=== PATIENT | female | born 2000 | race Caucasian/White ===

== ENCOUNTER → 2020-06-23 13:53 | Outpatient (CLI) | payer BC, OTHER, SELFPAY ==
[2020-06-23 11:01] VITALS: BMI 29.9
[2020-06-25 07:07] LABS: Chlamydia By Nucleic Acid AMP Negative (Negative)
[2020-06-25 08:24] LABS: Gonococcus By Nucleic Acid AMP Negative (Negative)
[2020-06-25 16:25] LABS: HPV Reflexed? NOT INDICATED
== END ==
PROVIDERS: Referring Provider Nurse Practitioner Women's Health; Visit Provider Nurse Practitioner Women's Health
DX: Z12.4 Encounter for screening for malignant neoplasm of cervix (principal); Z11.3 Encounter for screening for infections with a predominantly sexual mode of transmission
CPT/HCPCS: 87491; 87591; 88175; G0145

== ENCOUNTER → 2020-07-07 10:45 | Outpatient (CLI) | payer BC, OTHER, SELFPAY ==
[2020-06-23 11:01] VITALS: BMI 29.9
[2020-07-07 11:34] LABS: hCG Titer Quant., Serum 29 mIU/mL (1-3)
== END ==
PROVIDERS: Referring Provider Nurse Practitioner Women's Health; Visit Provider Nurse Practitioner Women's Health
DX: N91.2 Amenorrhea, unspecified (principal)
CPT/HCPCS: 36415; 84702

== ENCOUNTER → 2020-07-09 14:58 | Outpatient (CLI) | payer BC, OTHER, SELFPAY ==
[2020-06-23 11:01] VITALS: BMI 29.9
[2020-07-09 15:55] LABS: hCG Titer Quant., Serum 101 mIU/mL (1-3)
== END ==
PROVIDERS: Referring Provider Nurse Practitioner Women's Health; Visit Provider Nurse Practitioner Women's Health
DX: N91.2 Amenorrhea, unspecified (principal)
CPT/HCPCS: 36415; 84702

== ENCOUNTER 2020-07-30 18:25 | Emergency (ER) | payer BC, OTHER, SELFPAY ==
[2020-07-28 11:48] VITALS: BMI 29.9
[2020-07-30 18:25] VITALS: BP 137/86; PULSE 93; RESP 16; TEMP 36.2; O2SAT 100
[2020-07-30 18:26] VITALS: BP 137/86; PULSE 88; RESP 16; TEMP 36.2; O2SAT 100; BMI 30.3
--- NOTE | 2020-07-30 18:50 | US_ITS ---
STUDY: FIRST TRIMESTER OBSTETRICAL ULTRASOUND REASON FOR EXAM: Female, 19 years old RT ADX PAIN AND BLEEDING LMP: May 18, 2020. TECHNIQUE: Transabdominal and Transvaginal TECHNICAL QUALITY: Adequate. PRIOR ULTRASOUND: None. FINDINGS: There is visualization of a single gestational sac in a normal intrauterine position. The mean sac diameter (MSD) measures 2.2 cm, indicating an estimated gestational age (EGA) of 7 weeks, 0 days. The gestational sac shape is within normal limits. There is adjacent 1.7 cm hypoechoic subchorionic hemorrhage. There is a visualized yolk sac. The yolk sac measures 0.4 cm. The placenta is non-visualized. There is visualization of a live embryo. The crown-rump length (CRL) measures 0.8 cm, indicating an estimated gestational age (EGA) of 6 weeks, 6 days. There is demonstrated cardiac activity with a heart rate of 130 bpm. The estimated gestation age (EGA) by LMP is 10 weeks, 3 days. The estimated date of delivery (TANIA) by LMP is February 22, 2021. The estimated gestation age (EGA) by US is 6 weeks, 3 days. The estimated date of delivery (TANIA) by US is March 19, 2021. The uterus measures 7.2 x 6.5 x 4.3 cm. There is no demonstrated uterine fibroid. The cervix is closed. The right ovary measures 4.2 x 3.0 x 2.9 cm. There is 1.7 cm cyst. There is no visualized right adnexal mass or complex lesion. The left ovary measures 2.9 x 2.2 x 1.7 cm. There is no left ovarian cyst. There is no visualized left adnexal mass or complex lesion. There is no fluid in the cul de sac. US/Transvaginal w/Preg US IMPRESSION: Single intrauterine gestation 6 weeks 6 days with estimated due date March 19, 2021. There is subchorionic hemorrhage. Electronically Signed: Mario Saini MD at 20:12 EDT , Service support ,
--- NOTE | 2020-07-30 18:50 | ED.DCSUM_ITS ---
History of Present Illness Chief Complaint: Vag Bld, Preg Informant: Patient, Family Narrative: 19-year-old female G1, presenting at 10 weeks gestation for vaginal bleeding. She states this started about an hour ago and it was bright red. She bled to her pants. She still has some slight bleeding. She complains of abdominal cramping which is worse in the right adnexal region. She states she does not have confirmed intrauterine yet. She called her [facility] earlier for nausea and was given Phenergan which she took. This helped her nausea. - Past Medical History (1) Status: Acute Comment: desires genetic, carrier and NTD Past Medical History - Allergies and Home Meds Allergies/Adverse Reactions: Allergies prednisone Allergy (Severe, Verified 07/28/20 11:49) Angioedema Primary Care Physician: Care Physician,No Primary [Primary Care Provider] - Past Medical History: None Surgical History: noncontributory Lives: With Family Smoking Status: Never smoker Alcohol: None Drugs: None Review of Systems General: Denies: Chills, Fever, Sweats Eyes: Denies: Visual changes - bilaterally, Diplopia ENT: Denies: Rhinorrhea, Sore throat Cardiovascular: Denies: Chest pain, Palpitations Respiratory: Denies: Dyspnea, Cough, Dyspnea on exertion Gastrointestinal: Denies: Abdominal pain, Nausea, Vomiting, Diarrhea, Melena, Hematochezia Genitourinary: Reports: - - Right adnexal pain and vaginal bleeding Musculoskeletal: Denies: Back pain, Extremity Pain Skin: Denies: Rash, Wounds Neurological: Denies: Headache, Weakness, Numbness Physical Exam Vital Signs/Narrative: Vital Signs Temp Pulse Resp BP Pulse Ox 07/30/20 18:26 97.1 F L 88 16 137/86 H 100 07/30/20 18:25 97.1 F L 93 16 137/86 H 100 General: Well nourished, No Acute Distress Head: Normocephalic, Atraumatic Eyes: Perrl, EOMI. Negative for: Pale conjunctiva ENT: Moist mucous membranes, No rhinorrhea Cardiovascular: Regular rate, Regular rhythm Respiratory: No distress, CTA bilaterally Abdomen: - - Numbness to palpation in the right adnexa. Skin: Normal color, No rash Neurological: Alert, Oriented x3 Psychological: Normal affect, Normal Mood Diagnostic/Tx/Re-eval Clinical Impression(s) from Imaging Studies Obstetrics Ultrasound 07/30/20 18:50 IMPRESSION: Single intrauterine gestation 6 weeks 6 days with estimated due date March 19, 2021. There is subchorionic hemorrhage. Electronically Signed: Mario Saini MD at 20:12 EDT , Service support , Laboratory Data 07/30/20 07/30/20 07/30/20 18:55 18:55 18:55 WBC 12.3 H RBC 3.86 L Hgb 11.8 L Hct 35.5 L MCV 92.0 MCH 30.6 MCHC 33.2 RDW Std Deviation 39.8 RDW Coeff of Nicko 11.8 Plt Count 360 MPV 9.2 Immature Gran % (Auto) 0.600 Neut % (Auto) 73.5 H Lymph % (Auto) 18.[address] [place] % (Auto) 6.4 Eos % (Auto) 1.1 Baso % (Auto) 0.4 Absolute Neuts (auto) 9.0 H Absolute Lymphs (auto) 2.20 Nucleated RBC % 0 Sodium Potassium Chloride Carbon Dioxide Anion Gap BUN Creatinine Estim Creat Clear Calc Est GFR (MDRD) Af Amer Est GFR (MDRD) Non-Af BUN/Creatinine Ratio Glucose Calcium HCG, Quant 46392 H Blood Type A POSITIVE 07/30/20 18:55 WBC RBC Hgb Hct MCV MCH MCHC RDW Std Deviation RDW Coeff of Nicko Plt Count MPV Immature Gran % (Auto) Neut % (Auto) Lymph % (Auto) [place] % (Auto) Eos % (Auto) Baso % (Auto) Absolute Neuts (auto) Absolute Lymphs (auto) Nucleated RBC % Sodium 139 Potassium 3.7 Chloride 107 Carbon Dioxide 24.0 Anion Gap 8 BUN 9 Creatinine 0.56 Estim Creat Clear Calc 125.68 Est GFR (MDRD) Af Amer 173 Est GFR (MDRD) Non-Af 143 BUN/Creatinine Ratio 16.0 Glucose 90 Calcium 9.1 HCG, Quant Blood Type - Medical Decision Making Patient presents with estimated gestation of 10 weeks with vaginal bleeding without confirmed intrauterine . On pelvic exam the cervical office is closed although there is some blood in the posterior fornix. Hemoglobin is stable. Electrolytes and kidney function are normal. Her blood type is positive so she does not need RhoGam. Transvaginal ultrasound shows live intrauterine with small subchorionic hemorrhage. There is no ectopic . Patient will follow-up with her [facility] tomorrow on an outpatient basis. Impression: 1. Threatened miscarriage 2. Subchorionic hemorrhage ED Disposition - Plan for ED Patient: Disposition: Home or Assisted Living Instructions: ED Possible Miscarriage Threatened Referrals: Care Physician,No Primary [Primary Care Provider] -
[2020-07-30 19:12] LABS: Basophil# 0.05 X10^3/uL; Basophil% 0.4 % (0-1); Eosinophil# 0.14 X10^3/uL; Eosinophils% 1.1 % (0-5); Hematocrit 35.5 % (37-47); Hemoglobin 11.8 g/dL (12.0-15.0); Mean Corp Hgb Conc 33.2 g/dL (32-36); Mean Corpuscular Hgb 30.6 pg (27.0-32.0); Mean Platelet Vol. 9.2 fl (6.2-12.0); Monocyte# 0.79 X10^3/uL; Monocyte% 6.4 % (0-10); NRBC Flagged by Analyzer 0 % (0-5); Neutrophil % 73.5 % (47-70); Platelet Count 360 K/mm3 (150-450); RBC Distribution Width CV 11.8 % (11.6-14.6); RBC Distribution Width SD 39.8 fl (35.1-43.9); Red Blood Count 3.86 M/mm3 (4.2-5.4); White Blood Count 12.3 K/mm3 (4.4-11.0)
[2020-07-30 19:32] LABS: Anion Gap 8 (5-15); BUN 9 mg/dL (7-18); Calcium,Total 9.1 mg/dL (8.5-10.1); Chloride 107 mmol/L (98-107); Creatinine, Serum 0.56 mg/dL (0.55-1.02); EST Glomerular Filtration Rate 143 mL/min (>60); Est Glom Filt Rate - Afr Amer 173 mL/min (>60); Estimated Creatinine Clearance 125.68 ml/min; Glucose 90 mg/dL (74-106); Potassium 3.7 mmol/L (3.5-5.1); Sodium Level 139 mmol/L (136-145)
[2020-07-30] MEDS: 0.9% Normal Saline 1,000 ML 1000 ML IV (19:37)
[2020-07-30 21:49] VITALS: BP 106/53; PULSE 83; RESP 16; O2SAT 100
== END 2020-07-30 21:53 | disposition home or self-care (01) ==
PROVIDERS: Emergency Provider Student in an Organized Health Care Education/Training Program
DX: O20.0 Threatened abortion (principal); O20.8 Other hemorrhage in early pregnancy; Z3A.10 10 weeks gestation of pregnancy
CPT/HCPCS: 76817; 80048; 84702; 85025; 86900; 86901; 96360; 99283; J7030; A4216

== ENCOUNTER → 2020-08-21 10:59 | Outpatient (CLI) | payer BC, OTHER, SELFPAY ==
[2020-08-20 11:06] VITALS: BMI 29.2
[2020-08-21 11:39] LABS: Absolute Lymphocyte Count 1.59 X10^3/uL (0.83-4.51); Absolute Neutrophil Count 7.4 X10^3/uL (2.0-7.7); Basophil# 0.04 X10^3/uL; Basophil% 0.4 % (0-1); Eosinophil# 0.11 X10^3/uL; Eosinophils% 1.1 % (0-5); Hematocrit 37.4 % (37-47); Hemoglobin 12.7 g/dL (12.0-15.0); Lymphocyte # 1.59 X10^3/ul (4.0); Lymphocyte % 16.5 % (19-41); Mean Corpuscular Hgb 31.3 pg (27.0-32.0); Mean Corpuscular Volume 92.1 fL (81-99); Mean Platelet Vol. 9.5 fl (6.2-12.0); Monocyte# 0.45 X10^3/uL; Monocyte% 4.7 % (0-10); NRBC Flagged by Analyzer 0 % (0-5); Neutrophil # 7.44 X10^3/uL (2.7-7.7); Platelet Count 326 K/mm3 (150-450); RBC Distribution Width CV 11.9 % (11.6-14.6); RBC Distribution Width SD 40.2 fl (35.1-43.9); Red Blood Count 4.06 M/mm3 (4.2-5.4); White Blood Count 9.7 K/mm3 (4.4-11.0)
[2020-08-21 12:51] LABS: HIV - WCH Non-Reactive (Nonreactive); Hepatitis B Surface Antigen Non-Reactive (Nonreactive); Hepatitis C Antibody Non-Reactive (Nonreactive); Rubella IgG 59.6 IU/mL
[2020-08-27 01:11] LABS: Rapid Plasmin Reagin (RPR) NONREACTIVE (NONREACTIVE)
== END ==
PROVIDERS: Obstetrics & Gynecology; Referring Provider Nurse Practitioner Women's Health; Visit Provider Nurse Practitioner Women's Health
DX: Z34.00 Encounter for supervision of normal first pregnancy, unspecified trimester (principal)
CPT/HCPCS: 36415; 85025; 86592; 86703; 86762; 86803; 86850; 86900; 86901; 87340

== ENCOUNTER → 2020-10-12 13:23 | Outpatient (CLI) | payer BC, OTHER, SELFPAY ==
[2020-10-12 13:09] VITALS: BMI 29.0
[2020-10-19 14:10] LABS: CF, Screen Comment: (.)
== END ==
PROVIDERS: Referring Provider Obstetrics & Gynecology; Visit Provider Obstetrics & Gynecology
DX: Z34.00 Encounter for supervision of normal first pregnancy, unspecified trimester (principal)
CPT/HCPCS: 36415; 81220

== ENCOUNTER → 2020-12-23 10:41 | Outpatient (CLI) | payer OTHER, SELFPAY ==
[2020-12-09 10:49] VITALS: BMI 30.9
[2020-12-23 10:59] LABS: Absolute Lymphocyte Count 1.59 X10^3/uL (0.83-4.51); Absolute Neutrophil Count 8.8 X10^3/uL (2.0-7.7); Basophil# 0.05 X10^3/uL; Basophil% 0.4 % (0-1); Eosinophils% 0.9 % (0-5); Hematocrit 34.4 % (37-47); Hemoglobin 11.5 g/dL (12.0-15.0); Lymphocyte # 1.59 X10^3/ul (4.0); Mean Corp Hgb Conc 33.4 g/dL (32-36); Mean Corpuscular Hgb 31.3 pg (27.0-32.0); Mean Corpuscular Volume 93.7 fL (81-99); Monocyte# 0.63 X10^3/uL; Monocyte% 5.6 % (0-10); NRBC Flagged by Analyzer 0 % (0-5); Neutrophil # 8.83 X10^3/uL (2.7-7.7); Platelet Count 329 K/mm3 (150-450); RBC Distribution Width CV 12.7 % (11.6-14.6); RBC Distribution Width SD 43.6 fl (35.1-43.9); Red Blood Count 3.67 M/mm3 (4.2-5.4); White Blood Count 11.3 K/mm3 (4.4-11.0)
[2020-12-23 11:05] LABS: Glucose Challenge Gest 1H 50g 102 mg/dL (70-140)
== END ==
PROVIDERS: Referring Provider Obstetrics & Gynecology; Visit Provider Obstetrics & Gynecology
DX: Z34.00 Encounter for supervision of normal first pregnancy, unspecified trimester (principal)
CPT/HCPCS: 36415; 82950; 85025

== ENCOUNTER → 2021-02-19 13:03 | Outpatient (CLI) | payer OTHER, SELFPAY ==
[2021-02-19 11:24] VITALS: BMI 34.0
== END ==
PROVIDERS: Referring Provider Obstetrics & Gynecology; Visit Provider Obstetrics & Gynecology
DX: Z34.00 Encounter for supervision of normal first pregnancy, unspecified trimester (principal)
CPT/HCPCS: 87081

== ENCOUNTER 2021-03-14 22:00 | Outpatient (CLI) | payer OTHER, SELFPAY ==
[2021-03-12 10:47] VITALS: BMI 34.5
[2021-03-14 22:07] VITALS: BMI 35.1
[2021-03-14 22:12] VITALS: BP 147/68; PULSE 100; TEMP 37.3; O2SAT 99
[2021-03-14 22:16] VITALS: TEMP 37.3
[2021-03-14 22:29] VITALS: BP 139/78; PULSE 100
[2021-03-14 22:43] VITALS: BP 130/64; PULSE 100
[2021-03-14 22:58] VITALS: BP 126/60; PULSE 86
[2021-03-14 23:05] LABS: ROM Internal Control Test YES-OK TO RESULT pt. (Internal QC); ROM Patient Test Negative (Negative)
[2021-03-14 23:13] VITALS: BP 116/64; PULSE 90
--- NOTE | 2021-03-15 20:28 | OB.TRI.PN ---
Progress Notes Date of Service: 03/14/21 Progress Note: Patient presents for triage evaluation secondary to dec fm/questionable ROM FHT: 130 Moderate variability reactive no decelerations category I tracing [place]: no regular Contractions Assessment and plan: dec fm Reactive NST, negative rom reassuring maternal and status patient discharged to home to follow-up in office, kick counts. See problem list details for additional plan information. Laboratory Studies: Laboratory Tests 03/15/21 03/14/21 Range/Units 13:30 22:30 Vag Amniotic Fld Detect Negative (Negative) COVID-19 (FELIPE) Cancelled Assessment & Plan Assessment/Plan (1) Decreased movements in third trimester: Procedures Urinary/Genital [id number]: [id number] non-stress test Interp
== END 2021-03-14 23:20 | disposition home or self-care (01) ==
LOC: WPOUT 22:05 → WP 22:05
PROVIDERS: Visit Provider Obstetrics & Gynecology
DX: O36.8130 Decreased fetal movements, third trimester, not applicable or unspecified (principal); Z3A.00 Weeks of gestation of pregnancy not specified
CPT/HCPCS: 59025; 59050; 84112; 94760; 99218; G0378

== ENCOUNTER → 2021-03-15 15:01 | Outpatient (CLI) | payer OTHER, SELFPAY ==
[2021-02-05 10:39] VITALS: BMI 32.9
[2021-03-14 22:07] VITALS: BMI 35.1
== END ==
PROVIDERS: Visit Provider Obstetrics & Gynecology
DX: Z20.822 Contact with and (suspected) exposure to COVID-19 (principal)
CPT/HCPCS: 87635; C9803; U0002

== ENCOUNTER 2021-03-24 06:45 | Inpatient (IN) | payer OTHER, SELFPAY ==
[2021-03-19 10:39] VITALS: BMI 35.1
[2021-03-24] VITALS (32 sets, daily range): BP systolic 101–136; BP diastolic 52–98; PULSE 68–104; TEMP 36.4–36.8; O2SAT 82–100; BMI 34.7
[2021-03-24] MEDS: Lactated Ringers 1,000 ML 50 ML IV (08:00)
[2021-03-24] MEDS: Oxytocin 30 units/NS 500 ml 30 UNITS/500 ML IV.SOLN IV (08:15)
[2021-03-24 08:21] LABS: Absolute Lymphocyte Count 1.79 X10^3/uL (0.83-4.51); Absolute Neutrophil Count 10.9 X10^3/uL (2.0-7.7); Basophil# 0.06 X10^3/uL; Basophil% 0.4 % (0-1); Eosinophil# 0.18 X10^3/uL; Eosinophils% 1.3 % (0-5); Hematocrit 36.8 % (37-47); Hemoglobin 12.6 g/dL (12.0-15.0); Lymphocyte # 1.79 X10^3/ul (0.83-4.51); Lymphocyte % 13.1 % (19-41); Mean Corp Hgb Conc 34.2 g/dL (32-36); Mean Corpuscular Hgb 31.3 pg (27.0-32.0); Mean Corpuscular Volume 91.5 fL (81-99); Mean Platelet Vol. 9.7 fl (6.2-12.0); Monocyte# 0.59 X10^3/uL; Monocyte% 4.3 % (0-10); NRBC Flagged by Analyzer 0 % (0-5); Neutrophil # 10.94 X10^3/uL (2.7-7.7); Neutrophil % 80.1 % (47-70); Platelet Count 325 K/mm3 (150-450); RBC Distribution Width CV 12.9 % (11.6-14.6); RBC Distribution Width SD 42.5 fl (35.1-43.9); Red Blood Count 4.02 M/mm3 (4.2-5.4); White Blood Count 13.7 K/mm3 (4.4-11.0)
[2021-03-24] MEDS: Lactated Ringers 500 ML 999 ML IV ×4 (11:20→22:14)
--- NOTE | 2021-03-24 13:10 | HP.PCM.OB_ITS ---
HPI - General General Date of Admission: 03/24/21 HPI Narrative JOSE NEWMAN is a 20 F at 40 weeks gestation who presents for induction of labor for postdates Maternal Data Information TANIA Calculator Estimated Delivery Date Method Current WG Current Estimate 03/19/21 Ultrasound #1 40w 5d Other Estimates 02/22/21 Conception 44w 2d [facility] Medical History (Updated 03/24/21 @ 13:[address] Carie Swift MD) No significant medical problems Home Medications multivitamin no.47-iron fum 27 mg-folate no.1 1 mg-dha 300 mg capsule 1 cap PO DAILY 07/28/20 [History Last Taken 03/23/21] famotidine [Pepcid] 20 mg PO BID 03/14/21 [History Last Taken Unknown] promethazine 12.5 mg PO TID 03/14/21 [History Last Taken 03/23/21] Allergy/AdvReac Type Severity Reaction Status Date / Time prednisone Allergy Severe Angioedema Verified 03/19/21 10:34 Family History (Updated 03/24/21 @ 08:48 by Amy Reyes) Mother Hypertension Other Diabetes Surgical History No significant past surgical history Social History Smoking Status: Never smoker second hand exposure: No alcohol intake: never substance use type: does not use caffeine: Yes what type of physical activity do you participate in: none seatbelt use: always do you feel safe at home: Yes additional social history: Works at [employer] History 1 Elective abortions Hx Para 0 Spontaneous abortions Hx # Term Pregnancies Ectopic pregnancies Hx # Pregnancies Multiple births # of living children Visit Details Expected Delivery Route/Plan Labor Preferences- CB/BF classes: encouraged labor support person: Rudy labor intervention preferences: open to standard interventions pain management options preferred: natural as long as possible, open to epidural cut cord/dad catch: cord, NOT catch : yes PP control planned: [] discussed possible routes of delivery and associated risks: [] special requests: [] Plans flu vaccine: decline tdap vaccine: yes rhogam: na LARC form signed: yes movement and labor precautions reviewed. Problem list reviewed and updated with the most current plan of care details and appropriate orders placed. Relevant counseling for the gestational age provided. Continue routine care and follow up unless otherwise noted in visit notes/problem list details OB Flowsheet Initial Weight: Not Recorded Date -?-?-?-?-?-?-?-?-?-?-?-?- EGA Weight BP Urine Prot -?-?-?-?-?-?-?-?-?-?-?-?- Glucose FHR FuHt Pres Dilation -?-?-?-?-?-?-?-?-?-?-?-?- Effaced St Visit Note 08/04/20 -?-?-?-?-?-?-?-?-?-?-?-?- 7w 4d 163 lb 110/82 -?-?-?-?-?-?-?-?-?-?-?-?- 160 -?-?-?-?-?-?-?-?-?-?-?-?- SM- seen fro bro wn spotting, stable small subchorionic hemorrhage. plan fu in 2 weeks 08/20/20 -?-?-?-?-?-?-?-?-?-?-?-?- 9w 6d 160 lb 112/73 Negative -?-?-?-?-?-?-?-?-?-?-?-?- Negative 155 -?-?-?-?-?-?-?-?-?-?-?-?- Sm- hemorrhage r esolved no vb crmaping getting bloodwork done tomorrow 09/16/20 -?-?-?-?-?-?-?-?-?-?-?-?- 13w 5d 161 lb 2 oz 118/82 Nega tive -?-?-?-?-?-?-?-?-?-?-?-?- Negative 150 -?-?-?-?-?-?-?-?-?-?-?-?- GP - no cramping or bleeding. Anatomy scan ordered. NIPT normal. 10/12/20 -?-?-?-?-?-?-?-?-?-?-?-?- 17w 3d 159 lb 106/80 Negative -?-?-?-?-?-?-?-?-?-?-?-?- Negative 145 -?-?-?-?-?-?-?-?-?-?-?-?- SM- no vb lof so me cramping, afp and cf screen today 11/10/20 -?-?-?-?-?-?-?-?-?-?-?-?- 21w 4d 164 lb 122/80 Negative -?-?-?-?-?-?-?-?-?-?-?-?- Negative 140 -?-?-?-?-?-?-?-?-?-?-?-?- Sm- no vb lof go od fm no regular ctx 11/24/20 -?-?-?-?-?-?-?-?-?-?-?-?- 23w 4d 168 lb 2 oz 130/60 Nega tive -?-?-?-?-?-?-?-?-?-?-?-?- Negative 148 -?-?-?-?-?-?-?-?-?-?-?-?- -work in for ? lump mid left lower abdomen. No definitive mass/hernia. Call if definitive mass or significant pain occurs. Good FM. No CTX, VB, LOF. 12/09/20 -?-?-?-?-?-?-?-?-?-?-?-?- 25w 5d 169 lb 6 oz 128/78 Nega tive -?-?-?-?-?-?-?-?-?-?-?-?- Negative 135 25 -?-?-?-?-?-?-?-?-?-?-?-?- GP - no ctx, LOF , VB, DFM. GCT next visit. 12/23/20 -?-?-?-?-?-?-?-?-?-?-?-?- 27w 5d 169 lb 118/76 Negative -?-?-?-?-?-?-?-?-?-?-?-?- Negative 146 28 -?-?-?-?-?-?-?-?-?-?-?-?- MH-No VB, LOF. G ood FM. 28 wk labs, tdap, larc. 01/08/21 -?-?-?-?-?-?-?-?-?-?-?-?- 30w 0d 175 lb 122/80 Negative -?-?-?-?-?-?-?-?-?-?-?-?- Negative 145 30 -?-?-?-?-?-?-?-?-?-?-?-?- SM- no vb lof go od fm no regular ctx reviewed 28 wk labs 01/22/21 -?-?-?-?-?-?-?-?-?-?-?-?- 32w 0d 177 lb 120/80 Negative -?-?-?-?-?-?-?-?-?-?-?-?- Negative 150 32 -?-?-?-?-?-?-?-?-?-?-?-?- GP - no LOF, VB, DFM, ctx. Discussed CB classes. 02/05/21 -?-?-?-?-?-?-?-?-?-?-?-?- 34w 0d 180 lb 118/70 Negative -?-?-?-?-?-?-?-?-?-?-?-?- Negative 145 34 -?-?-?-?-?-?-?-?-?-?-?-?- SM- no vb lof go od fm no regular ctx 02/19/21 -?-?-?-?-?-?-?-?-?-?-?-?- 36w 0d 186 lb 120/86 Negative -?-?-?-?-?-?-?-?-?-?-?-?- Negative 150 36 Cephalic 0 -?-?-?-?-?-?-?-?-?-?-?-?- 50 -2 GP - no LO F, VB, DFM, ctx. GBS today. preferences scanned in. 02/25/21 -?-?-?-?-?-?-?-?-?-?-?-?- 36w 6d 186 lb 6 oz 136/82 Nega tive -?-?-?-?-?-?-?-?-?-?-?-?- Negative 135 37 -?-?-?-?-?-?-?-?-?-?-?-?- GP - no LOF, VB, DFM, ctx. Denies complaints. 03/05/21 -?-?-?-?-?-?-?-?-?-?-?-?- 38w 0d 189 lb 128/86 Negative -?-?-?-?-?-?-?-?-?-?-?-?- Negative 145 38 -?-?-?-?-?-?-?-?-?-?-?-?- GP - no LOF, VB, dFM, ctx. Discussed chiropractor for back and hip pain. Discussed COVID testing. 03/12/21 -?-?-?-?-?-?-?-?-?-?-?-?- 39w 0d 187 lb 124/80 Negative -?-?-?-?-?-?-?-?-?-?-?-?- Negative 140 39 -?-?-?-?-?-?-?-?-?-?-?-?- SM- no vb lof de c fm no reuglar ctx- NST reassuring. discussed kick counts, call if persistent dec fm 03/19/21 -?-?-?-?-?-?--?-?-?-?-?-?- 40w 0d 189 lb 128/92 Negative -?-?-?-?-?-?-?-?-?-?-?-?- Negative 135 40 Cephalic 3 -?-?-?-?-?-?-?-?-?-?-?-?- 70 -2 GP - no LO F, VB, DFM. Irregular ctx. Membranes swept. Scheduled for induction 03/24 if no labor. 03/24/21 -?-?-?-?-?-?-?-?-?-?-?-?- 40w 5d 190 lb 4 oz 130/62 125/72 117/55 126/60 136/73 -?-?-?-?-?-?-?-?-?-?-?-?- -?-?-?-?-?-?-?-?-?-?-?-?- IOL for post johnnie es NST FHR Rate Baby A Baseline: 130 Variability:: Moderate Accelerations:: 15 x 15 Decelerations:: None NST Reactive:: Yes FHR Category:: Category I Uterine Activity:: q3-5min ROS Eyes Eyes: Reports systems reviewed and no addt'l complaints, except as documented ENT HEENT: Reports systems reviewed and no addt'l complaints, except as documented Cardiovascular Cardiovascular: Reports systems reviewed and no addt'l complaints, except as documented Respiratory/Chest Respiratory/Chest: Reports systems reviewed and no addt'l complaints, except as documented Gastrointestinal Gastrointestinal: Reports systems reviewed and no addt'l complaints, except as documented Genitourinary Genitourinary: Reports systems reviewed and no addt'l complaints, except as documented Musculoskeletal Musculoskeletal: Reports systems reviewed and no addt'l complaints, except as documented Integumentary Integumentary: Reports systems reviewed and no addt'l complaints, except as documented Neurologic Neurologic: Reports systems reviewed and no addt'l complaints, except as documented Psychiatric Psychiatric: Reports systems reviewed and no addt'l complaints, except as documented Endocrine Endocrinology: Reports systems reviewed and no addt'l complaints, except as documented Hematologic/Lymphatic Hematologic/Lymphatic: Reports systems reviewed and no addt'l complaints, except as documented Allergic/Immunologic Allergic/Immunologic: Reports systems reviewed and no addt'l complaints, except as documented Vital Signs Vital Signs Vital Signs: 03/24/21 07:12 03/24/21 08:09 03/24/21 08:49 Pulse Rate 90 85 85 Blood Pressure 130/62 H 125/72 H 117/55 L BP Systolic 130 125 117 BP Diastolic 62 72 55 03/24/21 09:19 03/24/21 09:58 Pulse Rate 80 90 Blood Pressure 126/60 H 136/73 H BP Systolic 126 136 BP Diastolic 60 73 Weight Weight: 190 lb 4 oz Body Mass Index (BMI) 34.7 Physical Exam Const alert, oriented x3, no apparent distress, average body habitus, healthy appearing and well nourished HEENT normocephalic and moist oral mucous membranes Head and Scalp: atraumatic Eyes PERRL and EOMs intact bilaterally Neck full ROM Resp normal respiratory effort, no retractions and no use of accessory muscles Cardio regular rate and regular rhythm GI soft to palpation, non-tender and non-distended Extremity normal to inspection and full ROM Skin no rashes or lesions noted Neuro no focal motor deficits and no sensory deficits noted Psych mental status grossly normal, affect normal, speech normal and activity/motor behavior normal Labs Labs Labs: Blood Type A POSITIVE Antibody Screen NEGATIVE Hct 36.8 % (37-47) L Hgb 12.6 g/dL (12.0-15.0) Obstetrics US Rubella IgG Antibody 59.6 IU/mL Hep Bs Antigen Non-Reactive (Nonreactive) Neisseria gonorrhoeae DNA (FELIPE) Negative (Negative) HIV 1&2 Antibody Non-Reactive (Nonreactive) Glucose 1 Hr 50 gm 102 mg/dL (70-140) Miscellaneous Test Assessment & Plan (1) Encounter for induction of labor: PLAN: Patient presents IOL, plan management for with pitocin/AROM. Pain management: plans epidural. GBS negative. COVID negative Management of any complications: none I have reviewed the [facility] and made any clinically relevant updates. (2) History of tetanus, diphtheria, and acellular pertussis booster vaccination (Tdap): COMMENT: 12/23/20 (3) Supervision of normal first : QUALIFIERS: Trimester: third trimester Qualified Code(s): Z34.03 - Encounter for supervision of normal first , third trimester COMMENT: PRR TANIA 02/22/21, rufus Schmid BF:Rudy (4) : QUALIFIERS: Weeks of gestation: 40 weeks Qualified Code(s): Z3A.40 - 40 weeks gestation of COMMENT: NIPT low risk. anatomy nl, AFP negative; CF screening negative
--- NOTE | 2021-03-24 13:10 | PCM.HP.OB ---
HPI - General General Date of Admission: 03/24/21 HPI Narrative JOSE NEWMAN is a 20 F at 40 weeks gestation who presents for induction of labor for postdates Maternal Data Information TANIA Calculator Estimated Delivery Date Method Current WG Current Estimate 03/19/21 Ultrasound #1 40w 5d Other Estimates 02/22/21 Conception 44w 2d [facility] Medical History (Updated 03/24/21 @ 13:[address] Carie Swift MD) No significant medical problems Home Medications multivitamin no.47-iron fum 27 mg-folate no.1 1 mg-dha 300 mg capsule 1 cap PO DAILY 07/28/20 [History Last Taken 03/23/21] famotidine [Pepcid] 20 mg PO BID 03/14/21 [History Last Taken Unknown] promethazine 12.5 mg PO TID 03/14/21 [History Last Taken 03/23/21] Allergy/AdvReac Type Severity Reaction Status Date / Time prednisone Allergy Severe Angioedema Verified 03/19/21 10:34 Family History (Updated 03/24/21 @ 08:48 by Amy Reyes) Mother Hypertension Other Diabetes Surgical History No significant past surgical history Social History Smoking Status: Never smoker second hand exposure: No alcohol intake: never substance use type: does not use caffeine: Yes what type of physical activity do you participate in: none seatbelt use: always do you feel safe at home: Yes additional social history: Works at [employer] History 1 Elective abortions Hx Para 0 Spontaneous abortions Hx # Term Pregnancies Ectopic pregnancies Hx # Pregnancies Multiple births # of living children Visit Details Expected Delivery Route/Plan Labor Preferences- CB/BF classes: encouraged labor support person: Rudy labor intervention preferences: open to standard interventions pain management options preferred: natural as long as possible, open to epidural cut cord/dad catch: cord, NOT catch : yes PP control planned: [] discussed possible routes of delivery and associated risks: [] special requests: [] Plans flu vaccine: decline tdap vaccine: yes rhogam: na LARC form signed: yes movement and labor precautions reviewed. Problem list reviewed and updated with the most current plan of care details and appropriate orders placed. Relevant counseling for the gestational age provided. Continue routine care and follow up unless otherwise noted in visit notes/problem list details OB Flowsheet Initial Weight: Not Recorded Date <del>?</del> EGA Weight BP Urine Prot <del>?</del> Glucose FHR FuHt Pres Dilation <del>?</del> Effaced St Visit Note 08/04/20 <del>?</del> 7w 4d 163 lb 110/82 <del>?</del> 160 <del>?</del> SM- seen fro brown spotting, stable small subchorionic hemorrhage. plan fu in 2 weeks 08/20/20 <del>?</del> 9w 6d 160 lb 112/73 Negative <del>?</del> Negative 155 <del>?</del> Sm- hemorrhage resolved no vb crmaping getting bloodwork done tomorrow 09/16/20 <del>?</del> 13w 5d 161 lb 2 oz 118/82 Negative <del>?</del> Negative 150 <del>?</del> GP - no cramping or bleeding. Anatomy scan ordered. NIPT normal. 10/12/20 <del>?</del> 17w 3d 159 lb 106/80 Negative <del>?</del> Negative 145 <del>?</del> SM- no vb lof some cramping, afp and cf screen today 11/10/20 <del>?</del> 21w 4d 164 lb 122/80 Negative <del>?</del> Negative 140 <del>?</del> Sm- no vb lof good fm no regular ctx 11/24/20 <del>?</del> 23w 4d 168 lb 2 oz 130/60 Negative <del>?</del> Negative 148 <del>?</del> -work in for ?lump mid left lower abdomen. No definitive mass/hernia. Call if definitive mass or significant pain occurs. Good FM. No CTX, VB, LOF. 12/09/20 <del>?</del> 25w 5d 169 lb 6 oz 128/78 Negative <del>?</del> Negative 135 25 <del>?</del> GP - no ctx, LOF, VB, DFM. GCT next visit. 12/23/20 <del>?</del> 27w 5d 169 lb 118/76 Negative <del>?</del> Negative 146 28 <del>?</del> -No VB, LOF. Good FM. 28 wk labs, tdap, larc. 01/08/21 <del>?</del> 30w 0d 175 lb 122/80 Negative <del>?</del> Negative 145 30 <del>?</del> SM- no vb lof good fm no regular ctx reviewed 28 wk labs 01/22/21 <del>?</del> 32w 0d 177 lb 120/80 Negative <del>?</del> Negative 150 32 <del>?</del> GP - no LOF, VB, DFM, ctx. Discussed CB classes. 02/05/21 <del>?</del> 34w 0d 180 lb 118/70 Negative <del>?</del> Negative 145 34 <del>?</del> SM- no vb lof good fm no regular ctx 02/19/21 <del>?</del> 36w 0d 186 lb 120/86 Negative <del>?</del> Negative 150 36 Cephalic 0 <del>?</del> 50 -2 GP - no LOF, VB, DFM, ctx. GBS today. preferences scanned in. 02/25/21 <del>?</del> 36w 6d 186 lb 6 oz 136/82 Negative <del>?</del> Negative 135 37 <del>?</del> GP - no LOF, VB, DFM, ctx. Denies complaints. 03/05/21 <del>?</del> 38w 0d 189 lb 128/86 Negative <del>?</del> Negative 145 38 <del>?</del> GP - no LOF, VB, dFM, ctx. Discussed chiropractor for back and hip pain. Discussed COVID testing. 03/12/21 <del>?</del> 39w 0d 187 lb 124/80 Negative <del>?</del> Negative 140 39 <del>?</del> SM- no vb lof dec fm no reuglar ctx- NST reassuring. discussed kick counts, call if persistent dec fm 03/19/21 <del>?</del> 40w 0d 189 lb 128/92 Negative <del>?</del> Negative 135 40 Cephalic 3 <del>?</del> 70 -2 GP - no LOF, VB, DFM. Irregular ctx. Membranes swept. Scheduled for induction 03/24 if no labor. 03/24/21 <del>?</del> 40w 5d 190 lb 4 oz 130/62 125/72 117/55 126/60 136/73 <del>?</del> <del>?</del> IOL for post dates NST FHR Rate Baby A Baseline: 130 Variability:: Moderate Accelerations:: 15 x 15 Decelerations:: None NST Reactive:: Yes FHR Category:: Category I Uterine Activity:: q3-5min ROS Eyes Eyes: Reports systems reviewed and no addt'l complaints, except as documented ENT HEENT: Reports systems reviewed and no addt'l complaints, except as documented Cardiovascular Cardiovascular: Reports systems reviewed and no addt'l complaints, except as documented Respiratory/Chest Respiratory/Chest: Reports systems reviewed and no addt'l complaints, except as documented Gastrointestinal Gastrointestinal: Reports systems reviewed and no addt'l complaints, except as documented Genitourinary Genitourinary: Reports systems reviewed and no addt'l complaints, except as documented Musculoskeletal Musculoskeletal: Reports systems reviewed and no addt'l complaints, except as documented Integumentary Integumentary: Reports systems reviewed and no addt'l complaints, except as documented Neurologic Neurologic: Reports systems reviewed and no addt'l complaints, except as documented Psychiatric Psychiatric: Reports systems reviewed and no addt'l complaints, except as documented Endocrine Endocrinology: Reports systems reviewed and no addt'l complaints, except as documented Hematologic/Lymphatic Hematologic/Lymphatic: Reports systems reviewed and no addt'l complaints, except as documented Allergic/Immunologic Allergic/Immunologic: Reports systems reviewed and no addt'l complaints, except as documented Vital Signs Vital Signs Vital Signs: 03/24/21 07:12 03/24/21 08:09 03/24/21 08:49 Pulse Rate 90 85 85 Blood Pressure 130/62 H 125/72 H 117/55 L BP Systolic 130 125 117 BP Diastolic 62 72 55 03/24/21 09:19 03/24/21 09:58 Pulse Rate 80 90 Blood Pressure 126/60 H 136/73 H BP Systolic 126 136 BP Diastolic 60 73 Weight Weight: 190 lb 4 oz Body Mass Index (BMI) 34.7 Physical Exam Const alert, oriented x3, no apparent distress, average body habitus, healthy appearing and well nourished HEENT normocephalic and moist oral mucous membranes Head and Scalp: atraumatic Eyes PERRL and EOMs intact bilaterally Neck full ROM Resp normal respiratory effort, no retractions and no use of accessory muscles Cardio regular rate and regular rhythm GI soft to palpation, non-tender and non-distended Extremity normal to inspection and full ROM Skin no rashes or lesions noted Neuro no focal motor deficits and no sensory deficits noted Psych mental status grossly normal, affect normal, speech normal and activity/motor behavior normal Labs Labs Labs: Blood Type A POSITIVE Antibody Screen NEGATIVE Hct 36.8 % (37-47) L Hgb 12.6 g/dL (12.0-15.0) Obstetrics US Rubella IgG Antibody 59.6 IU/mL Hep Bs Antigen Non-Reactive (Nonreactive) Neisseria gonorrhoeae DNA (FELIPE) Negative (Negative) HIV 1&2 Antibody Non-Reactive (Nonreactive) Glucose 1 Hr 50 gm 102 mg/dL (70-140) Miscellaneous Test Assessment & Plan (1) Encounter for induction of labor: PLAN: Patient presents IOL, plan management for with pitocin/AROM. Pain management: plans epidural. GBS negative. COVID negative Management of any complications: none I have reviewed the [facility] and made any clinically relevant updates. (2) History of tetanus, diphtheria, and acellular pertussis booster vaccination (Tdap): COMMENT: 12/23/20 (3) Supervision of normal first : QUALIFIERS: Trimester: third trimester Qualified Code(s): Z34.03 - Encounter for supervision of normal first , third trimester COMMENT: PRR TANIA 02/22/21, girl Binu BF:Rudy (4) : QUALIFIERS: Weeks of gestation: 40 weeks Qualified Code(s): Z3A.40 - 40 weeks gestation of COMMENT: NIPT low risk. anatomy nl, AFP negative; CF screening negative
[2021-03-24] MEDS: fentaNYL-bupivacaine (epidural) 100 ML BAG EPIDURAL ×2 (14:22→18:48)
[2021-03-24] MEDS: Lactated Ringers 1,000 ML 200 ML IV ×2 (15:11→20:48)
[2021-03-24] MEDS: Ondansetron 4 MG/2 ML Vial IV ×2 (15:23→23:04)
[2021-03-24] MEDS: Acetaminophen 325 MG Tablet PO (18:56)
[2021-03-24] MEDS: Sodium Citrate/Citric Acid 30 ML UDC PO (23:33)
[2021-03-24] MEDS: Oxytocin 30 units/NS 500 ml 30 UNITS/500 ML IV.SOLN 334 UNITS IV (23:53)
[2021-03-24] MEDS: Methylergonovine 0.2 MG/ML Ampul IM (23:54)
[2021-03-25] VITALS (23 sets, daily range): BP systolic 91–125; BP diastolic 48–86; PULSE 74–97; RESP 16–18; TEMP 36.6–36.9; O2SAT 94–98
[2021-03-25] MEDS: Cefazolin 2 GM in 0.9% Normal Saline 100 ML IV (00:07)
--- NOTE | 2021-03-25 00:31 | OP.PCM_ITS ---
Assessment & Plan (1) Decreased movements in third trimester: COMMENT: nst 03/12 discussed if persistent to call in (2) Encounter for induction of labor: (3) 33 weeks gestation of : COMMENT: COVID negative on 03/15 (4) History of tetanus, diphtheria, and acellular pertussis booster vaccination (Tdap): COMMENT: 12/23/20 (5) Supervision of normal first : QUALIFIERS: Trimester: third trimester Qualified Code(s): Z34.03 - Encounter for supervision of normal first , third trimester COMMENT: PRR TANIA 02/22/21, rufus Schmid BF:Rudy (6) : QUALIFIERS: Weeks of gestation: 40 weeks Qualified Code(s): Z3A.40 - 40 weeks gestation of COMMENT: NIPT low risk. anatomy nl, AFP negative; CF screening negative Maternal Data Information TANIA Calculator Estimated Delivery Date Method Current WG Current Estimate 03/19/21 Ultrasound #1 40w 6d Other Estimates 02/22/21 Conception 44w 3d Vaginal Delivery Maternal Presentation Maternal Presentation: Medically Indicated Induction Maternal Presentation: 20-year-old at 40 weeks gestation admitted for induction of labor for postdates. Patient was induced with Pitocin and AROM. Patient had made cervical change to complete dilation and began pushing at approximately 10:00. While pushing, Pitocin had to be discontinued due to a 4- minute prolonged deceleration into the 80s. Patient then pushed for approximately an hour and had begun having deep variable decelerations with minimal variability in between contractions. The recommendation was made to proceed with a forceps assisted vaginal delivery. Type of Induction: Pitocin Medical Reason for Induction: Post term Operative Information Date of Procedure: 03/25/21 Pre-Operative Diagnosis: Term , postdates, category 2 heart rate tracing Post-Operative Diagnosis: Same Surgery / Procedure Performed: Forceps Assisted Vaginal Delivery Type of Anesthesia: Epidural Special Medications: Ancef 2 g Estimated Blood Loss: 350 Findings Description of Procedure: Patient was pushing with deep variable decelerations with pushing. Recommendation was made to proceed with a forceps assisted vaginal delivery. The maternal bladder had just been changed and Estrella catheter was removed. Additional help was called to the room. Cytology Technologist was called to the room. Anesthesia level was found to be adequate. Roly-Areli forceps were applied without difficulty and placement was noted to be correct. The head delivered with 2 contractions and a 2 pulls. She delivered the head in the JANETH presentation. The head was delivered atraumatically and a tight nuchal cord was noted and delivered through. The anterior and posterior shoulders delivered without complication followed by the rest of the and the infant was placed on the maternal abdomen. Upon delivery, the infant did not immediately cry therefore the cord was immediately clamped and cut and the infant was handed off to the nurses. Gentle traction was applied to the cord and the placenta delivered spontaneously immediately following it was noted to be intact with three-vessel cord. The perineum and vagina were inspected and a midline first-degree laceration with a left sulcal extension was noted. Laceration was noted to extend approximately 1/2 cm into the rectal mucosa, but the internal anal sphincter remained intact with complete separation of the external anal sphincter. The rectal mucosa was reapproximated using 3-0 Vicryl suture in a running fashion. A [id number] was used to reinforce the internal anal sphincter superior to the rectal mucosa. [id number] of 2-0 Vicryl were performed posteriorly, inferiorly, superiorly, and anteriorly in the external anal sphincter. The remainder of the repair was performed in the standard fashion for a second-degree laceration using 3-0 Vicryl Rapide suture. Uterine atony was initially noted, but improved with bimanual uterine massage and 1 dose of Methergine. EBL was 350 cc. Patient and infant tolerated delivery well. It was discussed with the patient that following her repair, she will need to take scheduled stool softeners should not strain for bowel movements. Will perform sitz bath's while inpatient. We will see back in 2 weeks to evaluate. Presentation: Vertex and JANETH Amniotic Membrane Rupture Type: Spontaneous Amniotic Fluid Description: Clear Placenta Disposition: [facility] Cord Vessel Description: 3 Vessels Cord Entanglement: Around neck x 1, tight Nuchal Cord Compression: With compression A Gender: Female Delayed Cord Clamping: No Post Vaginal Delivery Medications Given After Delivery: IV Pitocin and IM Methergin Episiotomy Description: None Laceration: Midline, Perineal Extension/lac and 2nd degree Complication Complications: - (Fourth degree laceration) Multi Select Codes Urinary/Genital Urinary/Genital CPT Codes: 08814 Vaginal Delivery global pkg (Forceps assisted)
--- NOTE | 2021-03-25 00:42 | PCM.DC ---
Discharge Instructions Diet Discharge Diet: No restrictions Activity Discharge Activity: Return to Normal Activity, May not drive while taking narcotic pain medications. and May Shower May resume sexual activity in: 4-6 weeks Dressing / Incision Call your doctor if your incision/area has: Continuous Slow Oozing, Sudden Increased Bleeding, Increased Pain/ Swelling, Increased Redness and Foul Smelling Discharge Follow Up Care When: Call to make an appointment with your doctor in 6 weeks. If you had elevated Blood Pressure or 4th degree laceration you will need to be seen in 2 weeks. Test Results: Test results from this visit will be discussed in further detail at your follow-up appointment, if applicable. Discharge Plan Admission Admit Date/Time: 03/24/21 06:45 Attending Provider: Carie Swfit Primary Care Provider: Care PhysicianGriselda Primary Discharge Orders/Prescriptions Prescriptions: No Action PNV-DHA 27 mg iron-1 mg -300 mg capsule 1 cap PO DAILY RF: 0 promethazine 12.5 mg tablet 12.5 mg PO TID RF: 0 famotidine [Pepcid] 20 mg tablet 20 mg PO BID RF: 0
[2021-03-25] MEDS: Naproxen 250 MG Tablet 500 MG PO ×2 (02:37→13:03)
[2021-03-25] MEDS: Acetaminophen 500 MG Tablet 1000 MG PO ×3 (06:08→20:29)
[2021-03-25] MEDS: oxyCODONE 5 MG Tablet PO ×3 (06:32→21:39)
--- NOTE | 2021-03-25 10:17 | PCM.PN.OB ---
Subjective Subjective Patient doing well without complaints. Tolerating PO. Ambulating and voiding without difficulty. Feeding well. Denies chest pain, shortness of breath, calf pain/swelling, fevers, chills, lightheadedness. Objective Data Objective Data Vital Signs: Vital Signs Temp Pulse Resp BP Pulse Ox 97.8 F 74 16 91/48 L 96 03/25/21 08:00 03/25/21 08:00 03/25/21 08:00 03/25/21 08:00 03/25/21 08:00 Oxygen Delivery Method Room Air Weight: 190 lb 4 oz Body Mass Index (BMI) 34.7 Intake & Output: Intake and Output for Last 24 Hours 03/23/21 03/24/21 03/25/21 23:59 23:59 23:59 Intake Total 3385.54 / 3385.54 1350 / 1350 Output Total 3950 / 3950 Balance 3385.54 / 3385.54 -2600 / -2600 Lab / Micro Data Result Diagrams: 03/24/21 08:00 ROS Constitutional Constitutional: Denies fever(s) Cardiovascular Cardiovascular: Denies chest pain, dyspnea or lightheadedness Gastrointestinal Gastrointestinal: Reports abdominal pain; Denies constipation or diarrhea Neurologic Neurologic: Denies dizziness or headache(s) Physical Exam Const alert, oriented x3, no apparent distress, average body habitus, healthy appearing and well nourished HEENT normocephalic Head and Scalp: atraumatic Eyes PERRL and EOMs intact bilaterally Neck full ROM Lymph Lymphatic: no lymphadenopathy noted Resp normal respiratory effort, no retractions and no use of accessory muscles Cardio regular rate GI soft to palpation, non-tender and non-distended Palpation: other Other Details: fundus firm Extremity normal to inspection and no clubbing, cyanosis or edema Skin no rashes or lesions noted Neuro no focal motor deficits and no sensory deficits noted Psych mental status grossly normal, affect normal and speech normal Assessment & Plan (1) Forceps delivery: PLAN: s/p PPD # 1 1. routine post delivery care 2. breast feeding- support given 3. rh positive 4. rubella immune 5. 4th degree laceration - scheduled colace
[2021-03-25] MEDS: Docusate Sodium 100 MG Capsule PO ×2 (10:32→21:39)
[2021-03-25] MEDS: Prenatal Vits Tablet 1 TABLET PO (10:32)
[2021-03-26 01:20] VITALS: BP 107/57; PULSE 73
[2021-03-26 01:24] VITALS: BP 107/57; PULSE 73; RESP 18; TEMP 36.1
[2021-03-26] MEDS: Naproxen 250 MG Tablet 500 MG PO (07:52)
[2021-03-26 07:56] VITALS: BP 107/51; PULSE 83
[2021-03-26 08:00] VITALS: BP 107/51; PULSE 83; RESP 16; TEMP 36.9; O2SAT 96
--- NOTE | 2021-03-26 08:59 | PCM.PN.OB ---
Subjective Subjective Patient doing well without complaints. Tolerating PO. Ambulating and voiding without difficulty. Feeding well. Denies chest pain, shortness of breath, calf pain/swelling, fevers, chills, lightheadedness. Objective Data Objective Data Vital Signs: Vital Signs Temp Pulse Resp BP Pulse Ox 98.5 F 83 16 107/51 L 96 03/26/21 08:00 03/26/21 08:00 03/26/21 08:00 03/26/21 08:00 03/26/21 08:00 Oxygen Delivery Method Room Air Weight: 190 lb 4 oz Body Mass Index (BMI) 34.7 Intake & Output: Intake and Output for Last 24 Hours 03/24/21 03/25/21 03/26/21 23:59 23:59 23:59 Intake Total 3385.54 / 3385.54 1350 / 1350 Output Total 3950 / 3950 Balance 3385.54 / 3385.54 -2600 / -2600 Lab / Micro Data Result Diagrams: 03/24/21 08:00 ROS Constitutional Constitutional: Denies fever(s) Cardiovascular Cardiovascular: Denies chest pain, dyspnea or lightheadedness Gastrointestinal Gastrointestinal: Reports abdominal pain; Denies constipation or diarrhea Neurologic Neurologic: Denies dizziness or headache(s) Physical Exam Const alert, oriented x3, no apparent distress, average body habitus, healthy appearing and well nourished HEENT normocephalic Head and Scalp: atraumatic Eyes PERRL and EOMs intact bilaterally Neck full ROM Lymph Lymphatic: no lymphadenopathy noted Resp normal respiratory effort, no retractions and no use of accessory muscles Cardio regular rate GI soft to palpation, non-tender and non-distended Palpation: other Other Details: fundus firm Extremity normal to inspection and no clubbing, cyanosis or edema Skin no rashes or lesions noted Neuro no focal motor deficits and no sensory deficits noted Psych mental status grossly normal, affect normal and speech normal Assessment & Plan (1) Forceps delivery: PLAN: s/p PPD # 2 1. routine post delivery care 2. breast feeding- support given 3. rh positive 4. rubella immune 5. 4th degree laceration - scheduled colace
[2021-03-26] MEDS: Docusate Sodium 100 MG Capsule PO (10:58)
[2021-03-26] MEDS: Prenatal Vits Tablet 1 TABLET PO (10:58)
[2021-03-26 14:35] VITALS: BP 119/56; PULSE 88; RESP 16; TEMP 37.2; O2SAT 98
[2021-03-26 14:44] VITALS: BP 119/56; PULSE 88
== END 2021-03-26 16:20 | disposition home or self-care (01) | DRG 768 ==
PROVIDERS: Obstetrics & Gynecology; Admitting Provider Obstetrics & Gynecology; Referring Provider Obstetrics & Gynecology; Visit Provider Obstetrics & Gynecology
DX: O76 Abnormality in fetal heart rate and rhythm complicating labor and delivery (principal); Z37.0 Single live birth; O70.3 Fourth degree perineal laceration during delivery; O48.0 Post-term pregnancy; Z3A.40 40 weeks gestation of pregnancy; O69.1XX0 Labor and delivery complicated by cord around neck, with compression, not applicable or unspecified; O62.2 Other uterine inertia
CPT/HCPCS: 59025; 59050; 85025; 86850; 86900; 86901; 99218; J7120; G0378; J2405

== ENCOUNTER → 2023-02-15 | Outpatient (CLI) | payer MEDICAID, SELFPAY ==
[2023-02-15 15:05] LABS: Absolute Lymphocyte Count 2.48 X10^3/uL (0.83-4.51); Absolute Neutrophil Count 6.6 X10^3/uL (2.0-7.7); Basophil# 0.08 X10^3/uL; Basophil% 0.8 % (0-1); Eosinophil# 0.34 X10^3/uL; Eosinophils% 3.3 % (0-5); Hematocrit 38.9 % (37-47); Hemoglobin 13.4 g/dL (12.0-15.0); Lymphocyte # 2.48 X10^3/ul (0.83-4.51); Lymphocyte % 24.3 % (19-41); Mean Corp Hgb Conc 34.4 g/dL (32-36); Mean Corpuscular Hgb 31.5 pg (27.0-32.0); Mean Corpuscular Volume 91.5 fL (81-99); Mean Platelet Vol. 9.2 fl (6.2-12.0); Monocyte# 0.67 X10^3/uL; Monocyte% 6.6 % (0-10); NRBC Flagged by Analyzer 0 % (0-5); Neutrophil # 6.58 X10^3/uL (2.7-7.7); Neutrophil % 64.3 % (47-70); Platelet Count 399 K/mm3 (150-450); RBC Distribution Width CV 12.4 % (11.6-14.6); RBC Distribution Width SD 41.2 fl (35.1-43.9); Red Blood Count 4.25 M/mm3 (4.2-5.4); White Blood Count 10.2 K/mm3 (4.4-11.0)
[2023-02-15 15:29] LABS: Hemoglobin A1c 5.1 % (3.8-5.6)
[2023-02-15 15:36] LABS: ALB/GLOB Ratio 0.9 RATIO (0.9-2.4); AST(SGOT) 81 U/L (15-37); Alanine Aminotransfer ALT/SGPT 120 U/L (13-56); Albumin, Serum 3.7 g/dL (3.2-5.0); Alkaline Phosphatase 123 U/L (45-117); Anion Gap 2 (5-15); BUN 9 mg/dL (7-18); BUN/Creat Ratio 12.6 RATIO (10-20); Calcium,Total 9.1 mg/dL (8.5-10.1); Chloride 104 mmol/L (98-107); Creatinine, Serum 0.71 mg/dL (0.55-1.02); EST Glomerular Filtration Rate 107 mL/min (>60); Est Glom Filt Rate - Afr Amer 129 mL/min (>60); Estradiol 85.6 pg/mL; Follicle Stimulating Hormone 6.4 mIU/mL; Globulin 4.2 g/dL (2.2-4.2); Glucose 84 mg/dL (74-106); Potassium 3.4 mmol/L (3.5-5.1); Protein, Total 7.9 g/dL (6.4-8.2); Sodium Level 134 mmol/L (136-145)
--- NOTE | 2023-02-15 15:54 | US_ITS ---
STUDY: ULTRASOUND OF THE FEMALE PELVIS - COMPLETE REASON FOR EXAM: Female, 22 years old. secondary oligomenorrhea LMP: TECHNIQUE: Transvaginal and transabdominal TECHNICAL QUALITY: Adequate. COMPARISON: None. FINDINGS: The uterus is anteverted and is in a midline position. The uterus measures 6.9 x 4.9 x 2.9 cm. Normal uterine cervix. The endometrium measures 5.9 mm in thickness, and is heterogeneous. There is no demonstrated endometrial mass. There is no demonstrated myometrial mass. I.U.D. - The patient does not have an I.U.D. Tiny nabothian cysts noted in the lower uterine segment The right ovary is visualized. The right ovary measures 3.7 x 2.9 x 2.7 cm. There is no right ovarian cyst or ovarian mass. There is no visualized right adnexal mass or complex lesion. There is normal arterial and normal venous vascularity. The left ovary is visualized. The left ovary measures 3.7 x 2.0 x 1.8 cm. There is no left ovarian cyst or ovarian mass. There is no visualized left adnexal mass or complex lesion. There is normal arterial and normal venous vascularity. Numerous small peripheral ovarian follicles noted bilaterally raising question of polycystic ovaries. Clinical correlation recommended There is no fluid in the cul-de-sac. US/Transvaginal Non- IMPRESSION: Findings suggestive of polycystic ovary disease however clinical correlation recommended Electronically Signed: Que Altman MD at 21:15 EDT ,
--- NOTE | 2023-02-15 15:54 | US_ITS ---
STUDY: ULTRASOUND OF THE FEMALE PELVIS - COMPLETE REASON FOR EXAM: Female, 22 years old. secondary oligomenorrhea LMP: TECHNIQUE: Transvaginal and transabdominal TECHNICAL QUALITY: Adequate. COMPARISON: None. FINDINGS: The uterus is anteverted and is in a midline position. The uterus measures 6.9 x 4.9 x 2.9 cm. Normal uterine cervix. The endometrium measures 5.9 mm in thickness, and is heterogeneous. There is no demonstrated endometrial mass. There is no demonstrated myometrial mass. I.U.D. - The patient does not have an I.U.D. Tiny nabothian cysts noted in the lower uterine segment The right ovary is visualized. The right ovary measures 3.7 x 2.9 x 2.7 cm. There is no right ovarian cyst or ovarian mass. There is no visualized right adnexal mass or complex lesion. There is normal arterial and normal venous vascularity. The left ovary is visualized. The left ovary measures 3.7 x 2.0 x 1.8 cm. There is no left ovarian cyst or ovarian mass. There is no visualized left adnexal mass or complex lesion. There is normal arterial and normal venous vascularity. Numerous small peripheral ovarian follicles noted bilaterally raising question of polycystic ovaries. Clinical correlation recommended There is no fluid in the cul-de-sac. US/Pelvic (Non ) IMPRESSION: Findings suggestive of polycystic ovary disease however clinical correlation recommended Electronically Signed: Que Altman MD at 21:15 EDT ,
[2023-02-18 05:07] LABS: Testosterone Free 6.8 pg/mL (0.0-4.2)
[2023-02-21 12:08] LABS: 17-Hydroxyprogesterone 57 ng/dL (.); Vitamin D 1,25-Dihydroxy 53.1 pg/mL (24.8-81.5)
== END | disposition home or self-care (01) ==
LOC: US 15:53
PROVIDERS: PCP Internal Medicine; Referring Provider Obstetrics & Gynecology; Visit Provider Obstetrics & Gynecology
DX: N91.4 Secondary oligomenorrhea (principal); E66.8 Other obesity
CPT/HCPCS: 36415; 76830; 76856; 80053; 82652; 82670; 83001; 83036; 83498; 84146; 84402; 84443; 85025

== ENCOUNTER → 2023-02-17 | Outpatient (CLI) | payer MEDICAID, SELFPAY ==
[2023-02-17 17:53] LABS: Cholesterol 219 mg/dL (200); High Density Lipoprotein 33 mg/dL; Triglycerides 151 mg/dL; Very Low Density Lipoprotein 30 mg/dL (5-40)
== END | disposition home or self-care (01) ==
LOC: LAB 15:45
PROVIDERS: PCP Internal Medicine; Referring Provider Obstetrics & Gynecology; Visit Provider Obstetrics & Gynecology
DX: N91.4 Secondary oligomenorrhea (principal); E66.8 Other obesity
CPT/HCPCS: 36415; 80061

== ENCOUNTER → 2023-02-23 | Outpatient (CLI) | payer MEDICAID, SELFPAY ==
--- NOTE | 2023-02-23 08:01 | US_ITS ---
STUDY: ABDOMINAL ULTRASOUND - RIGHT UPPER QUADRANT REASON FOR VISIT: Female, 22 years old abnormal LFTs TECHNIQUE: Ultrasound evaluation of the right upper quadrant was performed with real-time and static mckinney-scale imaging. TECHNICAL QUALITY: Adequate. COMPARISON: None. FINDINGS: Liver: The liver is enlarged and measures 18.9 cm. There is increased echogenicity consistent with fatty infiltration. The bile ducts are within normal limits. There is hepatic color flow. The direction of portal flow is hepatopetal. There is no demonstrated mass lesion. Gallbladder: Normal distended gallbladder. The gallbladder wall measures 2.5 mm. There is a negative sonographic Agudelo''s sign. There is no pericholecystic fluid. There is a solitary echogenic gallstone within the gallbladder. This measures 7 mm x 6 mm x 6 mm. Common Bile Duct (C.B.D.): The common bile duct measures 4.2 mm. Pancreas: Normal size of the head, body of the pancreas. The tail portion is obscured due to overlying bowel gas. There is normal echogenicity of the pancreas. There is no demonstrated pancreatic mass or cyst. Right Kidney: Normal size of the right kidney. The right kidney measures 11.6 cm x 5.5 cm x 4.8 cm. Normal renal cortex. The right cortex measures 1.3 cm. There is no demonstrated renal mass or cyst. There is no right hydronephrosis. US/Abdomen Limited IMPRESSION: Hepatomegaly and fatty infiltration of the liver. Solitary gallstone measuring 7 mm x 6 mm x 6 mm. Electronically Signed: Alec Zamarripa MD at 15:19 EDT ,
== END | disposition home or self-care (01) ==
LOC: US 08:00
PROVIDERS: PCP Internal Medicine; Referring Provider Obstetrics & Gynecology; Visit Provider Obstetrics & Gynecology
DX: R74.8 Abnormal levels of other serum enzymes (principal)
CPT/HCPCS: 76705

== ENCOUNTER → 2023-02-28 | Outpatient (CLI) | payer MEDICAID, SELFPAY ==
[2023-02-28 10:32] LABS: Ammonia < 10.0 umol/L (11-32)
[2023-02-28 10:43] LABS: Prothrombin Time (Protime)PT. 13.1 SECONDS (11.7-14.9)
[2023-02-28 10:55] LABS: Erythrocyte Sedimentation Rate 25 mm/hr (0-30)
[2023-02-28 11:06] LABS: Ferritin 134 ng/mL (8-252); LDH 179 U/L (84-246)
[2023-02-28 11:23] LABS: HIV - WCH Non-Reactive (Nonreactive)
[2023-03-01 14:09] LABS: Anti-Centromere B Ab <0.2 AI (0.0-0.9); Anti-Chromatin <0.2 AI (0.0-0.9); Anti-Jo <0.2 AI (0.0-0.9); Anti-Mitochondrial AB <20.0 Units (0.0-20.0); Anti-Scleroderma-70 AB <0.2 AI (0.0-0.9); Anti-dsDNA Ab <1 IU/mL (0-9); RNP Ab <0.2 AI (0.0-0.9); SJOGREN'S Anti-SS-A test < 0.2 AI (0.0-0.9); SJOGREN'S Anti-SS-B test < 0.2 AI (0.0-0.9); Smith Ab <0.2 AI (0.0-0.9)
[2023-03-02 21:07] LABS: AFP, Tumor Marker < 1.8 ng/mL (0.0-4.7); Angiotensin Convert Enzyme 62 U/L (14-82); Anti-Smooth Muscle ABS 20 Units (0-19); Ceruloplasmin 28.8 mg/dL (19.0-39.0); Copper, Serum or Plasma 134 ug/dL (80-158); Cytoplasmic Ab (C-ANCA) <1:20 titer (Neg:<1:20); HEPATITIS B SURFACE AG Negative (Negative); Haptoglobin 155 mg/dL (33-278); Hep C Antibodies Non Reactive (Non Reactive); Hepatitis A IgM Antibody Negative (Negative); Hepatitis B Core AB IgM Negative (Negative); Perinuclear Ab (P-ANCA) <1:20 titer (Neg:<1:20)
== END | disposition home or self-care (01) ==
LOC: BIMLAB 09:36
PROVIDERS: PCP Internal Medicine; Referring Provider Obstetrics & Gynecology; Visit Provider Obstetrics & Gynecology
DX: R74.8 Abnormal levels of other serum enzymes (principal)
CPT/HCPCS: 36415; 80074; 82105; 82140; 82164; 82390; 82525; 82728; 83010; 83516; 83615; 85610; 85652; 86140; 86225; 86235; 86256; 86703

== ENCOUNTER → 2024-02-29 | Outpatient (CLI) | payer MEDICAID, SELFPAY ==
[2024-03-06 16:54] LABS: HPV Reflexed? NOT INDICATED
== END | disposition home or self-care (01) ==
PROVIDERS: PCP Internal Medicine; Visit Provider Nurse Practitioner Family
DX: Z12.4 Encounter for screening for malignant neoplasm of cervix (principal)
CPT/HCPCS: 88175; G0145

== ENCOUNTER → 2024-03-14 | Outpatient (CLI) | payer MEDICAID, SELFPAY ==
--- NOTE | 2024-03-14 16:54 | US_ITS ---
STUDY: SUPERFICIAL ULTRASOUND - RIGHT GROIN REASON FOR EXAM: Female, 23 years old. Pelvic mass Right lower quadrant -- Lymph node chain/suprapubic/right. Per FRANCISCO JAVIER Crane in office, changed order TECHNIQUE: A superficial ultrasound was performed with real-time and static mckinney-scale imaging. COMPARISON: None. FINDINGS: There is an enlarged lymph node measuring 3.2 x 1.6 x 1.2 cm of uncertain clinical significance.. There are 2 smaller nodes measuring 8 x 7 x 6 mm and 8 x 7 x 4 mm US/Ext Non Vasc Limited/Soft Tiss IMPRESSION: Right inguinal adenopathy with the largest nodule measuring 3.2 x 1.6 x 1.2 cm of uncertain etiology or clinical significance Electronically Signed: Que Altman MD at 22:38 EDT ,
== END | disposition home or self-care (01) ==
LOC: US 16:53
PROVIDERS: PCP Internal Medicine; Referring Provider Nurse Practitioner Family; Visit Provider Nurse Practitioner Family
DX: R19.03 Right lower quadrant abdominal swelling, mass and lump (principal)
CPT/HCPCS: 76882

== ENCOUNTER → 2024-07-31 | Outpatient (CLI) | payer MEDICAID, SELFPAY ==
[2024-07-31 12:03] LABS: Absolute Neutrophil Count 6.2 X10^3/uL (2.0-7.7); Basophil# 0.09 X10^3/uL; Basophil% 0.9 % (0-1); Eosinophil# 0.32 X10^3/uL; Eosinophils% 3.3 % (0-5); Hematocrit 40.9 % (37-47); Hemoglobin 13.6 g/dL (12.0-15.0); Lymphocyte % 25.7 % (19-41); Mean Corp Hgb Conc 33.3 g/dL (32-36); Mean Corpuscular Hgb 30.7 pg (27.0-32.0); Mean Corpuscular Volume 92.3 fL (81-99); Mean Platelet Vol. 9.7 fl (6.2-12.0); Monocyte% 5.1 % (0-10); NRBC Flagged by Analyzer 0 % (0-5); Neutrophil # 6.22 X10^3/uL (2.7-7.7); Neutrophil % 64.2 % (47-70); Platelet Count 405 K/mm3 (150-450); RBC Distribution Width CV 12.3 % (11.6-14.6); Red Blood Count 4.43 M/mm3 (4.2-5.4); White Blood Count 9.7 K/mm3 (4.4-11.0)
[2024-07-31 12:39] LABS: ALB/GLOB Ratio 0.8 RATIO (0.9-2.4); AST(SGOT) 119 U/L (15-37); Alanine Aminotransfer ALT/SGPT 243 U/L (13-56); Albumin, Serum 3.4 g/dL (3.2-5.0); Alkaline Phosphatase 125 U/L (45-117); Anion Gap 5 (5-15); BUN 10 mg/dL (7-18); BUN/Creat Ratio 14.5 RATIO (10-20); Calcium,Total 9.1 mg/dL (8.5-10.1); Chloride 107 mmol/L (98-107); Cholesterol 213 mg/dL (200); Creatinine, Serum 0.69 mg/dL (0.55-1.02); EST Glomerular Filtration Rate 110 mL/min (>60); Est Glom Filt Rate - Afr Amer 133 mL/min (>60); Globulin 4.4 g/dL (2.2-4.2); Glucose 93 mg/dL (74-106); High Density Lipoprotein 37 mg/dL; Protein, Total 7.8 g/dL (6.4-8.2); Sodium Level 138 mmol/L (136-145); T4 Free Direct 0.98 ng/dL (0.76-1.46); Triglycerides 118 mg/dL; Very Low Density Lipoprotein 24 mg/dL (5-40)
== END | disposition home or self-care (01) ==
LOC: BIMLAB 10:28
PROVIDERS: PCP Internal Medicine; Referring Provider Internal Medicine; Visit Provider Internal Medicine
DX: Z00.00 Encounter for general adult medical examination without abnormal findings (principal); Z13.29 Encounter for screening for other suspected endocrine disorder
CPT/HCPCS: 36415; 80053; 80061; 84439; 84443; 85025

== ENCOUNTER → 2024-12-30 | Outpatient (CLI) | payer MEDICAID, SELFPAY ==
[2025-01-01 08:09] LABS: PROGESTERONE <0.1 ng/mL (.)
[2025-01-07 12:08] LABS: PROLACTIN 8.1 ng/mL (4.8-33.4); Testosterone Free 1.9 pg/mL (0.0-4.2)
== END | disposition home or self-care (01) ==
LOC: LAB 12:20
PROVIDERS: PCP Internal Medicine; Referring Provider Nurse Practitioner Women's Health; Visit Provider Nurse Practitioner Women's Health
DX: N97.9 Female infertility, unspecified (principal)
CPT/HCPCS: 36415; 82627; 84144; 84146; 84402; 82626

== ENCOUNTER → 2025-01-16 | Outpatient (CLI) | payer MEDICAID, SELFPAY ==
[2025-01-17 08:08] LABS: PROGESTERONE <0.1 ng/mL (.)
== END | disposition home or self-care (01) ==
PROVIDERS: Nurse Practitioner Women's Health; PCP Internal Medicine; Referring Provider Advanced Practice Midwife; Visit Provider Advanced Practice Midwife
DX: N91.4 Secondary oligomenorrhea (principal)
CPT/HCPCS: 36415; 84144

== ENCOUNTER → 2025-02-26 | Outpatient (CLI) | payer MEDICAID, SELFPAY ==
[2025-02-27 04:07] LABS: PROGESTERONE 0.1 ng/mL (.)
== END | disposition home or self-care (01) ==
PROVIDERS: PCP Internal Medicine; Referring Provider Nurse Practitioner Women's Health; Visit Provider Nurse Practitioner Women's Health
DX: E28.2 Polycystic ovarian syndrome (principal)
CPT/HCPCS: 36415; 84144

== ENCOUNTER → 2025-02-27 | Outpatient (CLI) | payer MEDICAID, SELFPAY ==
[2025-03-01 04:07] LABS: PROGESTERONE 0.1 ng/mL (.)
== END | disposition home or self-care (01) ==
LOC: BWCLAB 16:28
PROVIDERS: PCP Internal Medicine; Referring Provider Nurse Practitioner Women's Health; Visit Provider Nurse Practitioner Women's Health
DX: E28.2 Polycystic ovarian syndrome (principal)
CPT/HCPCS: 36415; 84144

== ENCOUNTER → 2025-04-15 | Outpatient (CLI) | payer MEDICAID, SELFPAY ==
[2025-04-16 12:08] LABS: PROGESTERONE 0.1 ng/mL (.)
== END | disposition home or self-care (01) ==
LOC: BWCLAB 11:52
PROVIDERS: Nurse Practitioner Women's Health; PCP Internal Medicine; Referring Provider Obstetrics & Gynecology; Visit Provider Obstetrics & Gynecology
DX: E28.2 Polycystic ovarian syndrome (principal)
CPT/HCPCS: 36415; 84144

== ENCOUNTER 2025-05-30 11:49 | Outpatient (CLI) | payer MEDICAID, SELFPAY ==
[2025-05-31 04:07] LABS: PROGESTERONE 8.5 ng/mL (.)
== END 2025-05-30 23:59 | disposition home or self-care (01) ==
LOC: BWCLAB 11:51
PROVIDERS: PCP Internal Medicine; Referring Provider Nurse Practitioner Women's Health; Visit Provider Nurse Practitioner Women's Health
DX: Z34.90 Encounter for supervision of normal pregnancy, unspecified, unspecified trimester (principal)
CPT/HCPCS: 36415; 84144

== ENCOUNTER → 2025-08-04 | Outpatient (CLI) | payer MEDICAID, SELFPAY ==
[2025-08-04 17:26] LABS: Creatinine, Urine (random) 259.00 mg/dL (28.00-217.00); Protein, Urine (Random) 14.8 mg/dL (0.0-12.0); Protein:Creat Ratio 57 mg/g CRE (0-200)
[2025-08-07 04:07] LABS: Chlamydia By Nucleic Acid AMP Negative (Negative); Gonococcus By Nucleic Acid AMP Negative (Negative)
== END | disposition home or self-care (01) ==
LOC: LABSPEC 16:15
PROVIDERS: PCP Internal Medicine; Referring Provider Obstetrics & Gynecology; Visit Provider Obstetrics & Gynecology
DX: O09.90 Supervision of high risk pregnancy, unspecified, unspecified trimester (principal); Z3A.00 Weeks of gestation of pregnancy not specified
CPT/HCPCS: 36415; 82570; 84156; 87086; 87088; 87491; 87591

== ENCOUNTER → 2025-08-21 | Outpatient (CLI) | payer MEDICAID, SELFPAY ==
[2025-08-21 12:18] LABS: Hematocrit 40.1 % (37-47); Hemoglobin 13.7 g/dL (12.0-15.0); Immature Granulocytes Count 0.050 X10^3/uL (0.0-0.0); Mean Corp Hgb Conc 34.2 g/dL (32-36); Mean Corpuscular Volume 89.5 fL (81-99); Mean Platelet Vol. 9.4 fl (6.2-12.0); NRBC Flagged by Analyzer 0 % (0-5); Platelet Count 408 K/mm3 (150-450); RBC Distribution Width CV 12.5 % (11.6-14.6); RBC Distribution Width SD 40.7 fl (35.1-43.9); Red Blood Count 4.48 M/mm3 (4.2-5.4); White Blood Count 11.6 K/mm3 (4.4-11.0)
[2025-08-21 13:27] LABS: AST(SGOT) 18 U/L (<=31); Alanine Aminotransfer ALT/SGPT 22 U/L (<=34); Albumin, Serum 4.1 g/dL (3.5-5.0); Alkaline Phosphatase 93 U/L (35-104); Anion Gap 14 (5-15); BUN 7 mg/dL (4-19); BUN/Creat Ratio 11.5 RATIO (10-20); Calcium,Total 9.4 mg/dL (7.6-11.0); Carbon Dioxide 20.9 mmol/L (21.0-32.0); Chloride 102 mmol/L (98-108); Globulin 3.4 g/dL (2.2-4.2); Glucose 88 mg/dL (70-99); HIV Nonreactive (Nonreactive); Hepatitis B Surface Antigen Nonreactive (Nonreactive); Hepatitis C Antibody Nonreactive (Nonreactive); Potassium 4.0 mmol/L (3.3-5.1); Syphilis Antibodies Nonreactive (Nonreactive)
== END | disposition home or self-care (01) ==
PROVIDERS: PCP Internal Medicine; Referring Provider Obstetrics & Gynecology; Visit Provider Obstetrics & Gynecology
DX: O99.210 Obesity complicating pregnancy, unspecified trimester (principal); Z3A.00 Weeks of gestation of pregnancy not specified
CPT/HCPCS: 36415; 80053; 83036; 85025; 86703; 86762; 86780; 86803; 86850; 86900; 86901; 87340